=== PATIENT | female | born 1965 | race Caucasian/White ===

== ENCOUNTER 2017-11-30 12:48 | Outpatient (CLI) | payer BC | END 2017-11-30 12:49 | disposition home or self-care (01) | LOC: BICMAMMO 12:48 | PROVIDERS: ATTEND Obstetrics & Gynecology | DX: Z12.31 Encounter for screening mammogram for malignant neoplasm of breast (principal); N64.89 Other specified disorders of breast; Z85.89 Personal history of malignant neoplasm of other organs and systems | CPT/HCPCS: 77063; 77067 ==

== ENCOUNTER 2017-12-04 08:46 | Outpatient (CLI) | payer BC | END 2017-12-04 08:47 | disposition home or self-care (01) | LOC: BICMAMMO 08:46 | PROVIDERS: ATTEND Obstetrics & Gynecology | DX: N63.20 Unspecified lump in the left breast, unspecified quadrant (principal); R92.8 Other abnormal and inconclusive findings on diagnostic imaging of breast | CPT/HCPCS: G0206-LT; G0279 ==

== ENCOUNTER 2017-12-23 17:00 | Emergency (ER) | payer BC ==
[2017-12-23] MEDS ORDERED: Rabies Immune Globulin 1500 UNITS/10 ML VIAL IM SCH (18:15)
[2017-12-23] MEDS ORDERED: Rabies Vaccine 2.5 UNIT VIAL IM SCH (18:15)
== END 2017-12-23 18:45 | disposition home or self-care (01) ==
LOC: ERS 17:00
DX: Z20.3 Contact with and (suspected) exposure to rabies (principal); I10 Essential (primary) hypertension; E03.9 Hypothyroidism, unspecified
CPT/HCPCS: 90375; 90471; 90675; 96372

== ENCOUNTER → 2017-12-26 | Day surgery (SDC) | payer BC ==
[~2017-12-26] MED LIST: Rabies Vaccine 2.5 UNIT VIAL IM SCH
== END ==
LOC: ER/OP 10:26
PROVIDERS: ATTEND Emergency Medicine
DX: Z23 Encounter for immunization (principal); I10 Essential (primary) hypertension; E03.9 Hypothyroidism, unspecified; Z98.890 Other specified postprocedural states
CPT/HCPCS: 90471; 90675

== ENCOUNTER → 2017-12-30 | Day surgery (SDC) | payer BC | LOC: ER/OP 14:21 | PROVIDERS: ATTEND Nurse Practitioner Family | DX: Z23 Encounter for immunization (principal); Z88.0 Allergy status to penicillin | CPT/HCPCS: 90471; 90675 ==

== ENCOUNTER → 2018-01-06 | Day surgery (SDC) | payer BC ==
[~2018-01-06] MED LIST changes: -Rabies Vaccine 2.5 UNIT VIAL IM SCH; +Rabies Vaccine Human 2.5 UNITS VIAL ONE
== END ==
LOC: SCSER/OP 08:26
PROVIDERS: ATTEND Emergency Medicine
DX: Z23 Encounter for immunization (principal); E03.9 Hypothyroidism, unspecified; Z88.0 Allergy status to penicillin; Z79.899 Other long term (current) drug therapy
CPT/HCPCS: 90471; 90675

== ENCOUNTER 2018-08-05 15:43 | Outpatient (CLI) | payer BC ==
--- NOTE | 2018-08-05 17:41 | RAD ---
LEFT KNEE RADIOGRAPHS TWO VIEWS: 08/05/18 PROVIDED CLINICAL HISTORY: Left knee pain. FINDINGS: There is no evidence for fracture. Tubular radiolucency involving the proximal fibula is partially vi sualized and may be on the basis of prior postsurgical change. Alignment appears anatomic. Joint spac es appear preserved with weightbearing. No significant knee joint capsular distention is evident. IMPRESSION: 1. No evidence for fracture or significant arthropathy. 2. Lucency within the proximal fibular diaphysis is incompletely characterized and may be on the basis of prior postsurgical change. In the absence of such a history, dedicated foreleg radiographs are recommended. POS: LYDIA
--- NOTE | 2018-08-05 17:42 | RAD ---
RIGHT KNEE RADIOGRAPHS TWO VIEWS: 08/05/18 PROVIDED CLINICAL HISTORY: Right knee pain. FINDINGS: There is no evidence for fracture or other acute osseous abnormality. Alignment appears anatomic. Grazyna nt spaces appear preserved. No evidence for significant knee joint capsular distention. IMPRESSION: Unremarkable right knee radiographs. POS: PATEINCE
--- NOTE | 2018-08-05 17:49 | RAD ---
TWO VIEW CHEST: 08/05/18 INDICATION: Hypertension. COMPARISON: None available. FINDINGS: The lungs are hyperinflated. There is no lobar consolidation, effusion or discrete pneumothorax. Card iac silhouette is upper limits of normal in size. There is mild osseous degenerative changes. IMPRESSION: Hyperinflated lungs, which can be seen in the setting of COPD. Correlate clinically. POS: PATIENCE
== END 2018-08-05 15:44 | disposition home or self-care (01) ==
LOC: BICRAD 15:43
PROVIDERS: ATTEND Internal Medicine Rheumatology
DX: M25.561 Pain in right knee (principal); M25.562 Pain in left knee; I10 Essential (primary) hypertension; R91.8 Other nonspecific abnormal finding of lung field; Z98.890 Other specified postprocedural states
CPT/HCPCS: 71046

== ENCOUNTER 2019-01-06 09:25 | Outpatient (CLI) | payer BC ==
--- NOTE | 2019-01-06 12:32 | ULT ---
LIMITED ULTRASOUND LEFT BREAST: 01/06/2019 HISTORY: Palpable abnormality left breast. COMPARISON: Prior left breast ultrasound on 12/04/2017, as well as mammogram on 01/06/2019. FINDINGS: There is a lobulated anechoic cystic structure seen within the left breast, measuring 1.5 cm x 1.2 cm x 1.1 cm. This demonstrates sonographic findings most compatible with a cyst, with thin linear sept ation. Echogenic material is seen within the chest, which is likely artifactual, as opposed to a sma ll amount of debris. There is a tiny adjacent anechoic structure, measuring 0.5 cm, also related to a small cyst. There was a cluster of small cysts in this region on prior study in 2018, and the larg est cyst on the prior exam measured 1.8 cm x 0.7 cm x 1.5 cm. Additional smaller cysts were also see n on the prior study. No solid mass is seen. IMPRESSION: BI-RADS category 2-Benign findings. Routine annual mammographic screening is recommended. POS: OFF
--- NOTE | 2019-01-10 13:25 | MMO ---
Bilateral MAMMO Bilat Diag [facility]. CLINICAL HISTORY: Patient is 53 years old and is seen for diagnostic exam and lump or thickening in the left breast. The patient has no family history of breast cancer. The patient has a history of other cancer in 2007. The patient has a history of right Cyst Aspiration in 2005 - benign. VIEWS: The views performed were: bilateral craniocaudal with tomosynthesis; bilateral mediolateral oblique with tomosynthesis; bilateral mediolateral; and bilateral Implant displaced. FILMS COMPARED: The present examination has been compared to prior imaging studies performed at [facility] on 02/22/2004, 10/31/2005, 11/23/2006, 10/17/2008, 10/20/2008, 10/04/2009, 10/14/2010, 11/28/2011, 12/30/2012, 03/30/2015, 06/17/2016, 11/30/2017, 12/04/2017 and 01/06/2019. MAMMOGRAM FINDINGS: The breasts are heterogeneously dense, which could obscure a lesion on mammography. There is a stable equal density, round mass measuring 16 millimeters with obscured margins seen in the upper-outer region of the left breast. Ultrasound shows a cyst in the upper outer left breast which corresponds to mammogram findings. There are no suspicious masses, suspicious calcifications, or new areas of architectural distortion. IMPRESSION: THERE IS NO MAMMOGRAPHIC EVIDENCE OF MALIGNANCY. A ROUTINE FOLLOW-UP MAMMOGRAM IN 1 YEAR IS RECOMMENDED. THE RESULTS OF THIS EXAM WERE SENT TO THE PATIENT. ACR BI-RADS Category 2 - Benign finding MAMMOGRAPHY NOTE: 1. A negative mammogram report should not delay a biopsy if a dominant of clinically suspicious mass is present. 2. Approximately 10% to 15% of breast cancers are not detected by mammography. 3. Adenosis and dense breasts may obscure an underlying neoplasm.
== END 2019-01-06 09:26 | disposition home or self-care (01) ==
LOC: BICMAMMO 09:25
PROVIDERS: ATTEND Internal Medicine
DX: R92.2 Inconclusive mammogram (principal)
CPT/HCPCS: 77066; G0279